=== PATIENT | female | born 1955 | race Caucasian/White ===

== ENCOUNTER 2023-07-20 12:01 | Outpatient (RCR) | payer MEDICARE, OTHER, SELFPAY | END 2023-07-20 23:59 | disposition home or self-care (01) | LOC: CRHB 12:01 | PROVIDERS: ATTENDING PHYSICIAN Internal Medicine Interventional Cardiology | DX: I25.10 Atherosclerotic heart disease of native coronary artery without angina pectoris (principal); Z95.5 Presence of coronary angioplasty implant and graft; I25.2 Old myocardial infarction | CPT/HCPCS: G0422 ==

== ENCOUNTER → 2023-11-21 10:34 | Outpatient (REF) | payer MEDICARE, OTHER, SELFPAY | LOC: RCS 10:34 | PROVIDERS: ATTENDING PHYSICIAN Internal Medicine Interventional Cardiology; FAMILY PHYSICIAN Nurse Practitioner Adult Health | DX: R06.09 Other forms of dyspnea (principal) | CPT/HCPCS: 93306; Q9950 ==

== ENCOUNTER → 2024-02-16 07:24 | Outpatient (REF) | payer MEDICARE, OTHER, SELFPAY | LOC: DHCBC/DCA 07:24 | PROVIDERS: ATTENDING PHYSICIAN Internal Medicine Interventional Cardiology; FAMILY PHYSICIAN Internal Medicine | DX: R06.09 Other forms of dyspnea (principal) | CPT/HCPCS: 78452; 93017; A9500; J2785 ==

== ENCOUNTER 2024-02-19 11:07 | Emergency (ER) | payer MEDICARE, OTHER, SELFPAY ==
[2024-02-19 11:10] VITALS: BP 162/75
[2024-02-19 11:26] VITALS: BMI 30.6
[2024-02-19 11:39] VITALS: BP 115/60
[2024-02-19 11:54] LABS: % Basophils 0.7 % (0-2); % Eosinophils 2.8 % (0-6); % Immature Granulocytes 0.3 % (0-0.5); % Lymphocytes 32.6 % (20.5-51.1); % Neutrophils 56.6 % (42.2-75.2); Absolute Basophils 0.1 10^3/uL (0-0.2); Absolute Eosinophils 0.3 10^3/uL (0-0.7); Absolute Lymphocytes 2.9 10^3/uL (1.2-3.4); Absolute Monocytes 0.6 10^3/uL (0.1-0.6); Hematocrit 37.1 % (37.0-47.0); Hemoglobin 13.1 g/dL (12.0-16.0); Mean Corp Hgb Conc. 35.3 g/dL (33.0-37.0); Mean Corpuscular Hgb 32.3 pg (27.0-31.0); Mean Corpuscular Volume 91.4 fL (81.0-99.0); Mean Platelet Volume 10.8 fL (7.4-10.4); Nucleated Red Blood Cells % 0 %; Platelet Count 244 10^3/uL (130-400); Red Blood Cell Count 4.06 10^6/uL (4.20-5.40); Red Cell Dist. Width 12.6 % (11.5-14.5); White Blood Cell Count 8.8 10^3/uL (4.8-10.8)
[2024-02-19 12:07] LABS: ALT (SGPT) 23 U/L (0-35); AST (SGOT) 24 U/L (14-36); Albumin 4.4 g/dl (3.5-5.0); Alkaline Phosphatase 103 U/L (38-126); Blood Urea Nitrogen 18 mg/dl (7-17); Calcium 9.9 mg/dl (8.4-10.2); Carbon Dioxide 24 mmol/L (22-30); Chloride 108 mmol/L (98-107); Estimated Creatinine Clearance 75 ml/min; Glucose 107 mg/dl (70-99); Potassium 4.4 mmol/L (3.5-5.1); Sodium 138 mmol/L (135-145); Total Bilirubin 0.7 mg/dl (0.2-1.3); Total Protein 7.1 g/dl (6.3-8.2); eGFR > 60.00
[2024-02-19 12:13] LABS: Troponin I < 0.012 ng/ml
--- NOTE | 2024-02-19 12:30 | ED.GENMED ---
History of Present Illness
General
Chief Complaint: Breathing Problem
Time Seen by Provider: 02/19/24 11:32
History of Present Illness
History of Present Illness:
68-year-old female presents to the emergency department for evaluation of shortness of breath developing this morning. She felt as though as the symptoms worsen she developed tingling and paresthesias of the face and hands bilaterally. She denies
any associated chest pain. She denies any correlation with the symptoms associated with her STEMI from last year. She has been compliant with her post-cath medications. She notes that she did have a stress test done 3 days ago that was
inconclusive for ischemia, there was noted to be a predominantly fixed defect in the mid anteroseptal, mid anterior and anterior lateral, septal, apical anterior, apical lateral apex and apical inferior segments consistent with infarction. Ejection
fraction was measured at 30%. Denies any leg swelling or orthopnea.
Past History
Past History
ED Past Medical History: None
Social History
Tobacco: Smoker
Alcohol: Occasional
Drug: None
Employment: Retired
Family History
Family History: Unable to obtain
Review of Systems
Review of Systems
Allergies reviewed?: Yes
All Other Systems: ROS reviewed and negative except as documented in HPI and ROS
Phy Exam
Physical Exam
Physical Exam:
GEN: Well appearing, NAD, WDWN
Eyes: PERRLA, EOMs intact, no scleral icterus
HENT: NCAT, oral mucosa moist
Lungs: CTAB, no wheezes, rales, rhonchi, normal chest wall excursion
Cardiac: RRR, no M/R/G, no peripheral edema. Radial pulses 2+ bilat
Neuro: AO x 3
MSK: No gross deformity or ecchymosis. No edema. No digital clubbing
Skin: No rashes, petechiae. Normal color, no pallor or jaundice.
Psych: Calm, cooperative, proper hygiene
Scores
Heart Failure Risk
Heart Failure Risk Score: Not Applicable
Course
Orders/Labs/Results
Orders:
Orders
02/19/24 11:14
Electrocardiogram (*1) Urgent
Reason for Study: Shortness of Breath
EKG- Treatment ONCE
02/19/24 11:40
CMP [Comprehensive Metabolic Panel] Urgent
Complete Blood Count/With Diff Urgent
NT-proBNP Urgent
Comment: ADD ON
Troponin I Urgent
02/19/24 11:56
CR Chest - 2 Views Urgent
Comment:
Reason For Exam: SOB
02/19/24 12:06
D-Dimer Urgent
02/19/24 12:54
Add On- LAB Urgent
Tests Added?: BNP
Abnormal Lab Results
02/19/24
11:40
RBC 4.06 L 10^6/uL
(4.20-5.40)
MCH 32.3 H pg
(27.0-31.0)
MPV 10.8 H fL
(7.4-10.4)
Chloride 108 H mmol/L
(98-107)
BUN 18 H mg/dl
(7-17)
Glucose 107 H mg/dl
(70-99)
02/19/24 11:40
02/19/24 11:40
Vital Signs
Initial and Last Documented VS:
Initial Vital Signs
Temp Pulse Resp BP Pulse Ox
98.0 F 78 16 162/75 95
02/19/24 11:10 02/19/24 11:10 02/19/24 11:10 02/19/24 11:10 02/19/24 11:10
Last Documented Vital Signs
Temp Pulse Resp BP Pulse Ox
98.0 F 64 18 111/68 95
02/19/24 11:10 02/19/24 14:32 02/19/24 14:32 02/19/24 14:32 02/19/24 14:32
MDM/Problems Addressed
MDM/Problems Addressed:
She has no chest pain and no signs of ischemia on EKG. Her labs are reassuring and BNP is lower than previous. Chest x-ray shows no evidence for cardiopulmonary disease, she has no clinical signs of hypervolemia. Her symptoms gradually resolved
while in the emergency department. She will follow-up as an outpatient with her bin cleaner
Comment
Comment:
EKG independently interpreted by me shows normal sinus rhythm at a rate of [address] changes concerning for ischemia, T wave inversion consistent with EKG from the year prior
*Critical Care Note
Total Time (30-74mins, 75-104mins- exclusive of procedures): Not Applicable
ED Attending Note
-
Portions of this chart may have been created with voice recognition software.� Occasional wrong word or��sound alike� substitutions may have occurred due to the inherent limitations of voice recognition software.
Discharge Plan
Departure
Patient Disposition: Home (Routine Discharge)
Date of Disposition: 02/19/24
Time of Disposition: 14:15
Patient with high blood pressure during this ER visit?: No
Discharge Problem:
Shortness of breath
Instructions: Shortness of Breath (Dyspnea) (DC)
Prescriptions:
No Action
atorvastatin 80 mg Tablet
80 mg PO QPM Qty: 90 3RF
clopidogrel 75 mg Tablet
75 mg PO DAILY Qty: 90 3RF
carvedilol 3.125 mg Tablet
3.125 mg PO BID Qty: 180 3RF
pantoprazole 40 mg Tablet,Delayed Release (Dr/Ec)
40 mg PO DAILY Qty: 90 3RF
losartan 25 mg Tablet
25 mg PO DAILY Qty: 90 3RF
aspirin 81 mg Tablet,Chewable
81 mg PO DAILY Qty: 1 0RF
Referrals:
Bridgette Cuevas CRNP [Family Provider] -
Activity Restrictions/Additional Instructions:
Follow up with your bin cleaner
Interventions
Interventions:
*Risk Screen - Suicide Last Done: 02/19/24 11:26
*General Assessment Last Done: 02/19/24 11:26
*Neglect/Abuse Screening Last Done: 02/19/24 11:26
ED- Fall Risk Assessment Last Done: 02/19/24 11:26
*ED COVID-19 Vaccine History Last Done: 02/19/24 11:26
*Nursing Disposition Last Done: 02/19/24 14:35
ED- Cardiac Assessment Last Done: 02/19/24 11:26
ED- Pulmonary Assessment Last Done: 02/19/24 11:27
Discharge Date and Time
Discharge Date/Time: 02/19/24 14:36
Print Language: TRISTANIAN
[2024-02-19 12:37] LABS: D-Dimer < 0.27 ug/mlFEU (0.00-0.50)
[2024-02-19 13:00] VITALS: BP 117/60
[2024-02-19 14:03] LABS: NT-proBNP 1460 pg/ml
[2024-02-19 14:32] VITALS: BP 111/68
== END 2024-02-19 14:36 | disposition home or self-care (01) ==
LOC: EMR 11:07
PROVIDERS: Physician Assistant; EMERGENCY PHYSICIAN Emergency Medicine; FAMILY PHYSICIAN Nurse Practitioner Adult Health
DX: R06.02 Shortness of breath (principal); F17.200 Nicotine dependence, unspecified, uncomplicated
CPT/HCPCS: 99285; 71046; 80053; 83880; 84484; 85025; 85379; 93005

== ENCOUNTER → 2024-04-17 08:17 | Outpatient (REF) | payer MEDICARE, OTHER, SELFPAY ==
[2024-04-17 08:50] LABS: % Basophils 0.8 % (0-2); % Eosinophils 2.7 % (0-6); % Immature Granulocytes 0.3 % (0-0.5); % Lymphocytes 37.2 % (20.5-51.1); % Monocytes 7.1 % (1.7-9.3); % Neutrophils 51.9 % (42.2-75.2); Absolute Basophils 0.1 10^3/uL (0-0.2); Absolute Eosinophils 0.2 10^3/uL (0-0.7); Absolute Lymphocytes 3.4 10^3/uL (1.2-3.4); Absolute Monocytes 0.6 10^3/uL (0.1-0.6); Absolute Neutrophils 4.7 10^3/uL (1.4-6.5); Hematocrit 39.2 % (37.0-47.0); Hemoglobin 13.4 g/dL (12.0-16.0); Mean Corp Hgb Conc. 34.2 g/dL (33.0-37.0); Mean Corpuscular Hgb 31.4 pg (27.0-31.0); Mean Corpuscular Volume 91.8 fL (81.0-99.0); Mean Platelet Volume 10.9 fL (7.4-10.4); Nucleated Red Blood Cells % 0 %; Platelet Count 257 10^3/uL (130-400); Red Blood Cell Count 4.27 10^6/uL (4.20-5.40); Red Cell Dist. Width 13.2 % (11.5-14.5)
[2024-04-17 09:27] LABS: ALT (SGPT) 25 U/L (0-35); AST (SGOT) 26 U/L (14-36); Albumin 4.4 g/dl (3.5-5.0); Alkaline Phosphatase 83 U/L (38-126); Blood Urea Nitrogen 23 mg/dl (7-17); Calcium 9.7 mg/dl (8.4-10.2); Carbon Dioxide 28 mmol/L (22-30); Chloride 102 mmol/L (98-107); Glucose 107 mg/dl (70-99); HDL Cholesterol 42 mg/dl; LDL Cholesterol, Calculated 89 mg/dl; Potassium 4.3 mmol/L (3.5-5.1); Sodium 141 mmol/L (135-145); Total Bilirubin 0.8 mg/dl (0.2-1.3); Total Cholesterol 153 mg/dl (50-199); Total Protein 7.3 g/dl (6.3-8.2); Triglyceride 113 mg/dl (10-149); Very Low Density Lipoprotein 22 mg/dl (0-30); eGFR > 60.00
[2024-04-17 09:58] LABS: TSH Reflex To Free T4 1.52 uIU/ml (0.47-4.68)
== END ==
LOC: REG 08:17
PROVIDERS: ATTENDING PHYSICIAN Nurse Practitioner Adult Health
DX: Z00.00 Encounter for general adult medical examination without abnormal findings (principal); Z79.899 Other long term (current) drug therapy; Z13.29 Encounter for screening for other suspected endocrine disorder
CPT/HCPCS: 36415; 80053; 80061; 84443; 85025

== ENCOUNTER → 2024-11-19 07:29 | Outpatient (REF) | payer MEDICARE, OTHER, SELFPAY ==
[2024-11-19 09:10] LABS: ALT (SGPT) 30 U/L (0-35); AST (SGOT) 23 U/L (14-36); Blood Urea Nitrogen 24 mg/dl (7-17); Calcium 9.5 mg/dl (8.4-10.2); Carbon Dioxide 27 mmol/L (22-30); Chloride 105 mmol/L (98-107); Glucose 107 mg/dl (70-99); HDL Cholesterol 36 mg/dl; LDL Cholesterol, Calculated 49 mg/dl; Sodium 142 mmol/L (135-145); Total Cholesterol 99 mg/dl (50-199); Triglyceride 73 mg/dl (10-149); Very Low Density Lipoprotein 14 mg/dl (0-30); eGFR > 60.00
[2024-11-19 10:19] LABS: Glycohemoglobin (HgbA1c) 5.9 % (4.0-5.6)
== END ==
LOC: REG 07:29
PROVIDERS: ATTENDING PHYSICIAN Internal Medicine Interventional Cardiology; FAMILY PHYSICIAN Nurse Practitioner Adult Health
DX: Z00.00 Encounter for general adult medical examination without abnormal findings (principal); R73.01 Impaired fasting glucose; I25.5 Ischemic cardiomyopathy; E78.2 Mixed hyperlipidemia; I11.9 Hypertensive heart disease without heart failure
CPT/HCPCS: 36415; 80048; 80061; 83036; 84450; 84460